=== PATIENT | female | born 1980 | race Caucasian/White ===

== ENCOUNTER 2017-03-13 09:40 | Inpatient (IN) | payer OTHER ==
[2017-03-13 09:58] VITALS: BMI 23.6
[2017-03-13] MEDS: Lactated Ringer's 1,000 ML IV SCH ×2 (10:00→11:48)
[2017-03-13 10:52] LABS: BASO # 0.1 K/uL (0.0-0.2); BASO % 1.3 % (0.0-2.0); EOS % 0.4 % (0.0-4.0); HEMATOCRIT 36.3 % (34.0-47.0); LYMPH # 2.1 K/uL (1.0-4.3); MEAN CELL VOLUME 89.8 fl (81.0-99.0); MEAN CORPUSCULAR HEMOGLOBIN 30.2 pg (27.0-31.0); MEAN CORPUSCULAR HGB CONC 33.7 g/dL (33.0-37.0); MEAN PLATELET VOLUME 7.9 fl (7.2-11.7); MONO # 0.6 K/uL (0.0-0.8); MONO % 6.8 % (0.0-10.0); NEUT # 5.5 K/uL (1.8-7.0); NEUT % 66.5 % (50.0-75.0); RED CELL DISTRIBUTION WIDTH 14.1 % (11.5-14.5); WHITE BLOOD COUNT 8.3 K/uL (4.8-10.8)
[2017-03-13] MEDS ORDERED: Oxytocin 30 units/LR 500ML 30 U/500 ML BAG IV ONE (11:01)
[2017-03-13] MEDS ORDERED: Fentanyl/Bupivacaine HCl 250 ML EPI ONE (12:24)
[2017-03-13] MEDS ORDERED: Lidocaine 1% Inj (20ml) ONE (13:37)
[2017-03-13] MEDS ORDERED: Benzocaine/Menthol SPRAY TOP PRN (17:37)
[2017-03-13] MEDS: Oxycodone/Acetaminophen 5/325 mg Tab PO PRN (21:00)
--- NOTE | 2017-03-14 00:08 | OBADHP ---
Datetime: 03/13/2017 09:02 Admit Comment, IP Provider: 37-year-old 001 at 40 weeks and 2 days gestational age presents to OB ED with complaints of contractions. Patient denies any vaginal bleeding or leakage of fluids. Pat ient reports good movement. records reviewed. Patient with a history of AMA, low Nabil on first trimester screen, velamentous cord insertion. GBS negative Past medical history none Past surgical history none Medications vitamins No known drug allergies Obstetrical history full-term normal spontaneous vaginal delivery 1 Social history no tobacco, no drugs, no alcohol Physical exam: Refer to physical findings Adequate pelvis Estimated weight 7.5 pounds, cephalic by ultrasound Assessment: Early labor, postdates . Both maternal and well-being reassuring at this time. Plan: Admit patient for management. Discussed with patient and all patient questions answered. Pelvic Type - PN: Adequate Extremities - PN: Normal Abdomen - PN: Normal Back - PN: Normal Breast - PN: Normal Lungs - PN: Normal Heart - PN: Normal Thyroid - PN: Normal Neurologic - PN: Normal HEENT - PN: Normal General - PN: Normal FHR - Baseline A Provider: 120s IP Hx Assessment: The History has been Reviewed and is Current Vital Signs Provider: Reviewed; Within Normal Limits IP Chief Complaint: Uterine contractions NICHD Variability Prov Fetus A: Moderate 6-25bpm NICHD Decel Fetus A IP Provider: None Dilatation, Provider: 1-2 Effacement, Provider: 25 Station, Provider: -1 Genitourinary Exam: Normal DTRs - PN: Normal IP Adm Impression: Postterm, intrauterine IP Admit Plan: Admit to unit
--- NOTE | 2017-03-14 00:12 | OBDS ---
DELIVERY PERSONNEL Delivery Doctor: Jenny Roberts MD Curing Oven Attendant: Panda/Chey MATERNAL INFORMATION Delivery Anesthesia: Local; Epidural Medications in Delivery: Pitocin 20 Units in LR 1 L Estimated Blood Loss (ml): 300 Placenta Cultured: No Maternal Complications: None Provider Comments: Normal spontaneous vaginal delivery. Patient delivered viable male with Apgars of 9 and 9 at one and 5 minutes respectively. Loo se nuchal cord 1 reduced. Placenta delivered spontaneously. Laceration repaired, as above. Uterus f irm and appropriately hemostatic following delivery. Patient tolerated delivery and repair well. Pedi atrics present at delivery. No complications. Estimate blood loss 300 mL LABOR SUMMARY EDC: 03/10/2017 00:00 No. Babies in Womb: 1 Attempted: No Labor Anesthesia: Epidural LABOR INFORMATION Reason for Induction: Not Applicable Onset of Labor: 03/06/2017 10:00 Complete Dilatation: 03/13/2017 13:40 Oxytocin: N/A Group B Beta Strep: Negative Antibiotics # of Doses: n/a Antibiotics Time of Last Dose: n/a Steroids Given: None Reason Steroids Not Administered: Not Applicable MEMBRANES Membranes Rupture Method: Spontaneous Rupture of Membranes: 03/13/2017 13:45 Length of Rupture (hrs): 0.58 Amniotic Fluid Color: Clear Amniotic Fluid Amount: Large Amniotic Fluid Odor: Normal STAGES OF LABOR Stage 1 hrs: 171 Stage 1 min: 40 Stage 2 hrs: 0 Stage 2 min: 40 Stage 3 hrs: 0 Stage 3 min: 5 Total Time in Labor hrs: 172 Total Time in Labor min: 25 VAGINAL DELIVERY Episiotomy: None Laceration Extension: Second Degree Laceration Repair: Yes Laceration Repair Note: Second-degree midline perineal laceration. The area infiltrated with 1% lido luis f. Laceration repaired with 2. 0 repeat without complication. Patient tolerated well. Initial Vag Sponge Count: laps=5// sponges=10 Final Vag Sponge Count: laps=5//sponges=10 Initial Vag Sharps Count: 1 Final Vag Sharps Count: 1 Sponge Count Correct: Yes Sharps Count Correct: Yes Count Comment: count correct and acknowledge by MD BABY A INFORMATION Delivery Date/Time: 03/13/2017 14:20 Method of Delivery: Vaginal Born in Route : No : N/A Forceps: N/A Vacuum Extraction: N/A Shoulder Dystocia : No SHOULDER DYSTOCIA BABY A Delivery Date/Time: 03/13/2017 14:20 PRESENTATION/POSITION BABY A Presentation: Cephalic Cephalic Presentation: Vertex Breech Presentation: N/A PLACENTA INFORMATION BABY A Placenta Delivery Time : 03/13/2017 14:25 Placenta Method of Delivery: Spontaneous Placenta Status: Delivered SCORES BABY A Heart Rate 1 min: >100 bpm Resp Effort 1 min: Slow, Irregular Reflex Irritability 1 min: Cough or Sneeze or Pulls Away Muscle Tone 1 min: Active Motion Color 1 min: Body Magna, Extremities Blue Resuscitation Effort 1 min: Tactile Stimulation SCORE 1 MIN: 8 Heart Rate 5 min: >100 bpm Resp Effort 5 min: Good Cry Reflex Irritability 5 min: Cough or Sneeze or Pulls Away Muscle Tone 5 min: Active Motion Color 5 min: Body Magna, Extremities Blue Resuscitation Effort 5 min: Oxygen SCORE 5 MIN: 9 INFANT INFORMATION BABY A Gestational Age at Delivery: 40.3 Gestational Status: Term Outcome : Liveborn Condition : Fair Sex: Male IDENTIFICATION/MEDS BABY A ID Band Number: [id number] ID Band Location: Left Leg; Left Arm Vitamin K Given : Not Given Erythromycin Given: Not Given WEIGHT/LENGTH BABY A Birthweight (gms): 3455 Infant Weight (lb): 7 Infant Weight (oz): 10 CORD INFORMATION BABY A No. Cord Vessels: 3 Nuchal Cord : Around Neck x1, Loose Nuchal Cord Other: n/a True Knot: n/a Infant Cord pH Baby Venous: 12.02 Cord Blood Taken: Yes Banking/Donate Info: n/a Infant Suction: Mouth; Nose ASSESSMENT BABY A Infant Complications: None Physical Findings at Delivery: Within Normal Limits Act Tutor/ALS Called : No Care By: Dr Garrett/Chey/Panda Transferred To: Nursery
[2017-03-14] MEDS: Oxycodone/Acetaminophen 5/325 mg Tab PO PRN ×3 (05:24→18:00)
[2017-03-14 05:31] LABS: HEMATOCRIT 32.9 % (34.0-47.0); MEAN CELL VOLUME 91.6 fl (81.0-99.0); MEAN CORPUSCULAR HEMOGLOBIN 29.9 pg (27.0-31.0); MEAN CORPUSCULAR HGB CONC 32.7 g/dL (33.0-37.0); RED CELL DISTRIBUTION WIDTH 14.7 % (11.5-14.5); WHITE BLOOD COUNT 15.1 K/uL (4.8-10.8)
--- NOTE | 2017-03-14 10:20 | OBPPN ---
Datetime: 03/14/2017 10:07 PP Pain Prov: Within normal limits PP Nausea Prov: Denies PP Flatus Prov: Yes PP Breasts Prov: Normal PP Heart Prov: Normal PP Lungs Prov: Normal PP Abdomen/Uterus Prov: Normal PP Lochia Prov: Normal PP Vulva/Perineum Prov: Normal PP CVA Tenderness Prov: Normal PP Extremities Prov: Normal PP Comments Phys Exam Prov: Fundus firm under umbilicus PP Impression Prov: Normal progression PP Plan Prov: Continue present management PP Progress Note Prov: Patient denies Cp, no SOB, no N/V, tolerating PO diet, ambulating/voiding wel l, mild lochia, abdominal pain tolerable with meds A/P PPD #1 1. Continue orders 2. Encourage ambulation/ IP PP Procedures: None Vital Signs Provider PP: Reviewed; Within Normal Limits
[2017-03-15] MEDS: Oxycodone/Acetaminophen 5/325 mg Tab PO PRN (06:06)
--- NOTE | 2017-03-15 09:46 | OBDCSUM ---
Datetime: 03/15/2017 09:45 Discharged to, Provider: Home Follow up at, Provider: [facility] Disch Instr Activity: Normal activity Disch Instr Diet: Regular Discharge Instructions, Provider: Routine instructions given Discharge Diagnosis, Provider: Term Delivered Follow up in weeks, Provider: 6w Disch Referrals: None Contraception discussed, Prov: Yes Disch Activity Restrictions: No sexual activity; Nothing in vagina - Cyril, tampons, douche
--- NOTE | 2017-03-15 09:46 | OBPPN ---
Datetime: 03/15/2017 09:44 PP Pain Prov: Within normal limits PP Nausea Prov: Denies PP Flatus Prov: Yes PP BM Prov: Yes PP Breasts Prov: Normal PP Heart Prov: Normal PP Lungs Prov: Normal PP Abdomen/Uterus Prov: Normal PP Lochia Prov: Normal PP Vulva/Perineum Prov: Normal PP CVA Tenderness Prov: Normal PP Extremities Prov: Normal PP Progress Prov: Normal PP Impression Prov: Normal progression PP Plan Prov: Discharge PP Progress Note Prov: She feels fine A: S/P day 2 PLAN dischagre home and follow up in 6w Vital Signs Provider PP: Reviewed; Within Normal Limits
[2017-03-15 21:11] VITALS: BP 141/68; PULSE 71; RESP 20; TEMP 98.9; O2SAT 100
== END 2017-03-15 14:30 | disposition home or self-care (01) | DRG 775 ==
LOC: H.EROB2 09:40 → H.L&D 09:41 → H.EROB2 10:27 → H.OB/GYN 20:57
PROVIDERS: ADMIT Obstetrics & Gynecology Gynecology; ATTEND Obstetrics & Gynecology Gynecology
PROC: 10E0XZZ Delivery of Products of Conception, External Approach (ICD-10-PCS; principal; 2017-03-13)
PROC: 0KQM0ZZ Repair Perineum Muscle, Open Approach (ICD-10-PCS; 2017-03-13)
PROC: 4A1HXCZ Monitoring of Products of Conception, Cardiac Rate, External Approach (ICD-10-PCS; 2017-03-13)
DX: O48.0 Post-term pregnancy (principal); O69.81X0 Labor and delivery complicated by cord around neck, without compression, not applicable or unspecified; Z37.0 Single live birth; O70.1 Second degree perineal laceration during delivery; Z3A.40 40 weeks gestation of pregnancy